=== PATIENT | male | born 1990 | race African-American/Black ===

== ENCOUNTER 2016-12-04 13:06 | Emergency (ER) | payer OTHER, MEDICAID ==
[~2016-12-04] VITALS: Ht 172.7 cm; Wt 70.0 kg
[2016-12-04 13:09] VITALS: BP 131/83; PULSE 62; RESP 15; TEMP 98.2; O2SAT 98
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
[2016-12-04] MEDS ORDERED: ACETAMINOPHEN 500 MG CPLT PO ONE (15:15)
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
[2016-12-04] MEDS ORDERED: IBUP800T23 PO (16:15)
[2016-12-04] MEDS ORDERED: CYCL5TAB PO (16:15)
== END 2016-12-04 16:25 | disposition home or self-care (01) ==
LOC: NEPD 13:06
DX: S62.002A Unspecified fracture of navicular [scaphoid] bone of left wrist, initial encounter for closed fracture (principal); V89.2XXA Person injured in unspecified motor-vehicle accident, traffic, initial encounter; Y92.410 Unspecified street and highway as the place of occurrence of the external cause; Z72.0 Tobacco use
CPT/HCPCS: 73110; 99284; L3808